=== PATIENT | male | born 1990 | race Caucasian/White ===

== ENCOUNTER 2024-11-18 10:00 | Outpatient (RCR) | payer BC, SELFPAY | END 2025-02-20 11:12 | disposition home or self-care (01) | PROVIDERS: Visit Provider Physician Assistant Medical | DX: M25.561 Pain in right knee (principal); G89.29 Other chronic pain; M25.571 Pain in right ankle and joints of right foot; Z51.89 Encounter for other specified aftercare | CPT/HCPCS: 97110; 97161 ==